=== PATIENT | male | born 2000 | race Caucasian/White ===

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

== ENCOUNTER 2023-01-13 11:33 | Inpatient (IN) ==
--- NOTE | 2023-01-13 12:03 | XRay Report ---
XR chest 1V portable HISTORY: 22 years-old Male Chest pain, nonspecific COMPARISON: 03/27/2015 TECHNIQUE: AP view of the chest FINDINGS: Cardiomediastinal and hilar silhouettes are within normal limits. No pneumothorax, pleural effusion o r airspace consolidation. The bones appear grossly intact. Mild nonspecific mid to lower lung interst itial coarsening. IMPRESSION: 1. No airspace consolidation typical for pneumonia. 2. Equivocal interstitial coarsening of the mid to lower lung zones which may be secondary to techniq ue versus a subtle pneumonitis. ACT 112: Negative or not required by law. The above report was generated using voice recognition software. It may contain grammatical, syntax o r spelling errors. Electronically signed by: Simeon Nj M.D. 01/13/2023 12:02 PM
[2023-01-13] MEDS: SODIUM CHLORIDE 0.9% 1,000 ML IV SCH ×2 (12:21→13:41)
[2023-01-13 12:37] LABS: Basophils # (auto) 0.05 K/uL (0.00-0.20); Basophils % (auto) 0.3 %; Eosinophils # (auto) 0.08 K/uL (0.00-0.50); Eosinophils % (auto) 0.5 %; Hematocrit (blood only) 42.3 % (42.0-52.0); Hemoglobin 15.1 g/dl (14.0-18.0); Immature Granulocytes # (auto) 0.09 K/uL (0.01-0.20); Immature Granulocytes % (auto) 0.6 %; Lymphocytes # (auto) 1.42 K/uL (1.20-3.40); Lymphocytes % (auto) 9.6 %; Mean Corpuscular Hemoglobin 29.7 pg (25.0-34.0); Mean Corpuscular Hgb Conc 35.7 g/dL (32.0-36.0); Mean Corpuscular Volume 83.1 fL (80.0-100.0); Mean Platelet Volume 9.4 fL (9.4-12.4); Monocytes # (auto) 1.11 K/uL (0.11-0.59); Monocytes % (auto) 7.5 %; Neutrophils % (auto) 81.5 %; Platelet Count 365 K/uL (130-400); RDW Coefficient of Variation 11.7 % (11.5-14.5); RDW Standard Deviation 35.7 fL (36.4-46.3); Red Blood Count 5.09 M/uL (4.70-6.10); White Blood Count 14.75 K/ul (4.8-10.8)
[2023-01-13] MEDS ORDERED: ACETAMINOPHEN 1,000 MG/100 ML VIAL IV STA (12:44)
[2023-01-13] MEDS ORDERED: ALBUT/IPRATROP 3MG/0.5MG NEB 3 ML VIAL NEB ONE (12:44)
[2023-01-13] MEDS ORDERED: KETOROLAC TROMETHAMINE 15 MG/ML VIAL IV STA (12:44)
[2023-01-13] MEDS ORDERED: guaiFENesin 600 MG TABCR PO STA (12:44)
[2023-01-13] MEDS ORDERED: SODIUM CHLORIDE 0.65% NA SOLN 45 ML (OCEAN) ONE (12:44)
[2023-01-13] MEDS ORDERED: methylPREDNISolone 125 MG/2 ML VIAL IV STA (12:44)
[2023-01-13 12:48] LABS: INR 1.1 (0.9-1.1); Partial Thromboplastin Ratio 1.2; Partial Thromboplastin Time 33.2 Seconds (21.0-31.0); Prothrombin Time 12.4 Seconds (9.0-12.0)
[2023-01-13] MEDS ORDERED: FAMOTIDINE 20MG IV PUSH 20 MG/5 ML SYR IV STA (12:48)
[2023-01-13] MEDS ORDERED: ONDANSETRON INJ 2 MG/ML 2 ML VIAL IV STA (12:48)
[2023-01-13 13:01] LABS: Albumin Globulin Ratio 1.2 (0.9-2); Albumin Level 4.3 gm/dl (3.4-5.0); BUN Creatinine Ratio 10.8 (10-20); Bilirubin,Total 0.8 mg/dl (0.2-1.0); Calcium 9.6 mg/dl (8.6-10.3); Creatinine Clr Calc Pharmacy 126.7 ml/min; Est GFR (African American) 120.4 ml/min; Est GFR (Non-African American) 103.8 ml/min; Globulin 3.7 gm/dl (2.5-4.0); Phosphorus 3.6 mg/dl (2.5-4.9); Potassium 3.7 mmol/L (3.5-5.1)
[2023-01-13 13:04] LABS: Troponin I High Sensitivity 3.3 pg/ml (0-20)
[2023-01-13] MEDS ORDERED: OPTIRAY 320 500ml IV ONE (13:17)
[2023-01-13 13:48] LABS: Adenovirus PCR Not Detected (NotDetected); Bordetella parapertussis PCR Not Detected (NotDetected); Bordetella pertussis PCR Not Detected (NotDetected); Chlamydia pneumoniae PCR Not Detected (NotDetected); Coronavirus 229E PCR Not Detected (NotDetected); Coronavirus CoV-2 (COVID19)PCR Not Detected (NotDetected); Coronavirus HKU1 PCR Not Detected (NotDetected); Coronavirus NL63 PCR Not Detected (NotDetected); Coronavirus OC43PCR Not Detected (NotDetected); Human Metapneumovirus PCR Not Detected (NotDetected); Influenza A PCR Not Detected (NotDetected); Influenza B PCR Not Detected (NotDetected); Parainfluenza Virus 1 PCR Not Detected (NotDetected); Parainfluenza Virus 2 PCR Not Detected (NotDetected); Parainfluenza Virus 3 PCR Not Detected (NotDetected); Parainfluenza Virus 4 PCR Not Detected (NotDetected); Respiratory Syncytial VirusPCR Not Detected (NotDetected); Rhinovirus/Enterovirus PCR Not Detected (NotDetected)
[2023-01-13 13:51] LABS: Mycoplasma pneumoniae PCR DETECTED (NotDetected)
--- NOTE | 2023-01-13 14:01 | CT Scan Report ---
CT angio chest PE protocol CLINICAL HISTORY: tachycardia, hypoxia, sepsis, r/o PE TECHNIQUE: Multidetector row helical CT of the chest was performed with angiographic protocol. Emerson l and sagittal reformations were obtained. Coronal and sagittal MIPS were obtained from the axial nicky a set and were submitted for review. Automated dose lowering techniques and/or adjustment according to patient size were utilized for this exam. CT DOSE: 2520.28 mGy.cm Comparison: None available at the time of this dictation. FINDINGS: Lungs and pleura: There is prominent nodularity in the bilateral lower lungs. Heart and pericardium: Heart size is normal. No pericardial effusion. Vessels: No evidence of pulmonary embolism. Mediastinum and castillo: Subcentimeter lymph nodes are seen. Chest wall and lower neck: Subcentimeter axillary lymph nodes noted. Abdomen: For findings below the diaphragm, please refer to CT of the abdomen dated the same. Bones: Unremarkable. IMPRESSION: No pulmonary embolus. Bilateral lower lung nodularity likely represents infectious/inflammatory proce ss. ACT 112: Negative or not required by law. Electronically signed by: Glynn Hamm M.D. 01/13/2023 1:59 PM
[2023-01-13] MEDS ORDERED: AZITHROMYCIN 500 MG in DEXTROSE 5% 250 ML IV STA (14:09)
[2023-01-13] MEDS ORDERED: AMPICILLIN/SULBACTAM SOD 3,000 MG in SODIUM CHLOR 0.9% MINI-B 100 ML IV STA (14:09)
--- NOTE | 2023-01-13 14:11 | Emergency Department Note ---
Impression & Plan Sepsis, Bronchopneumonia due to Mycoplasma pneumoniae, Hypoxia, Bilateral otitis media ED Provider Note NAME: LYN BROWN AGE: 22 SEX: M ARRIVES VIA: Walk-In INFORMANT: Patient ED PROVIDER(S): Galdino Mclean MD CHIEF COMPLAINT: Hypoxia, fever, congestion, referred. PLAN: Disposition: Admit MEDICAL DECISION MAKING: The patient is a pleasant 22-year-old gentleman with a past medical history of Crohn's disease who presents to the emergency department via walk-in accompanied by his mother for evaluation of cough, congestion and fevers and shortness of breath we are seen by his outpatient PCP today and referred to the emergency department due to hypoxia with O2 saturation in the upper 80s on room air. The patient reports he does not take any medications for his Crohn's and this has been controlled. He denies any known sick contacts. The patient's mother reports that he did get significantly worse from last night into this morning after he had recurrent vomiting episodes last night. Patient did have a fever last night that was fluctuating. He denies chest pain but does feel short of breath. He denies any diarrhea or urinary symptoms. Denies smoking or vaping. Denies etoh use. On my evaluation the patient is ill-appearing but no acute distress, afebrile but heart rate in the 120s with O2 saturation 89% on room air and vital signs otherwise stable. He appears clinically dry. TMs with injection bilaterally. He has wheezes and rhonchi of bilateral mid to lower lung bailey. Abdomen is nontender. EKG without overt acute ischemia. Chest x-ray is suspicious for pneumonia with interstitial coarsening/opacities of bilateral lower lung bailey per my personal preliminary review/interpretation. WBC 14.7 with neutrophil predominance though no left shift. H/H and platelets within normal limits. Chemistry without metabolic acidosis. Lactic acid 0.9, within normal limits. LFTs unremarkable. High-sensitivity troponin 3.3 within normal limits. Procalcitonin is technically normal although borderline at 0.45. Respiratory BioFire was performed and was positive for mycoplasma pneumonia. Group A strep was negative. Patient was treated with 3 L of IV fluid hydration >30cc/kg given his presentation with SIRS. Antibiotic treatment initiated with IV azithromycin given positive mycoplasma PCR in addition to IV Unasyn for possible superimposed component of aspiration pneumonia. Additionally given Solu-Medrol and hour-long DuoNeb for component of bronchospasm on exam. Upon evaluation the patient did report some improvement but still appeared unwell and does agree with plan for admission for further management. Triage Nursing notes reviewed and agree them. Prior/external medical records reviewed including primary care doctor's visit today documenting bilateral otitis media and hypoxia on room air. Vital Signs: reviewed Differential diagnosis: Viral syndrome, otitis, pharyngitis, pneumonia, influenza, meningitis, urinary tract infection, sepsis, bacteremia, as well as other pathologies. ER treatment provided: See below. Diagnostics interpreted by me: ECG: Sinus tachycardia, 112 bpm, no ectopy, no overt ST elevation or depression, QTc 436, QRS 88 Cardiac Monitoring: An order for continuous cardiac monitoring was placed and demonstrated inus tachycardia, 112 bpm, no ectopy. Laboratory studies: See below Imaging studies: See below Consultation(s): Case was discussed with Jose Lopez, [facility] [place] and Dr. Boles, [facility] hospitalist who will evaluate the patient for admission. HPI: The patient is a pleasant 22-year-old gentleman with a past medical history of Crohn's disease who presents to the emergency department via walk-in accompanied by his mother for evaluation of cough, congestion and fevers and shortness of breath we are seen by his outpatient PCP today and referred to the emergency department due to hypoxia with O2 saturation in the upper 80s on room air. The patient reports he does not take any medications for his Crohn's and this has been controlled. He denies any known sick contacts. The patient's mother reports that he did get significantly worse from last night into this morning after he had recurrent vomiting episodes last night. Patient did have a fever last night that was fluctuating. He denies chest pain but does feel short of breath. He denies any diarrhea or urinary symptoms. Denies smoking or vaping. Denies etoh use. ROS: See above HPI for pertinent positives & negatives. A total of 10 systems reviewed and were otherwise negative. VITALS:See Below PHYSICAL EXAMINATION: GENERAL: Awake, alert, ill-appearing, in no distress HENT: Normocephalic, atraumatic. TMs with injection bilaterally. No mastoid ttp. Boggy nasal turbinates. No maxillary or frontal sinus tenderness. Oropharynx with dry mucous membranes and otherwise unremarkable. EYES: Normal conjunctiva. Sclera non-icteric. EOMI. No nystamgus. PEARRL. NECK: Supple. No nuchal rigidity. FROM. No JVD. RESPIRATORY: Wheezes and rhonchi bilateral mid to lower lung bailey. CARDIAC: Tachycardic rate, normal rhythm. Extremities warm and well perfused. Pulses equal. ABDOMEN: Soft, non-distended. No tenderness to palpation. No rebound or guarding. No masses. RECTAL: Deferred. MUSCULOSKELETAL: Chest examination reveals no tenderness. The back is symmetrical on inspection without obvious abnormality. There is no CVA tenderness to palpation. No joint edema. LOWER EXTREMITIES: Calves are equal size bilaterally and non-tender. No edema. No discoloration. NEURO: Normal sensorium. No sensory or motor deficits noted. SKIN: No rash or jaundice noted. ED COURSE: Critical Care: I have personally spent greater than 32 minutes of critical care time in the direct management of this patient. This includes bedside care, interpretation of diagnostic studies, and testing, discussion with consultants, patient, and family members, and other required patient management activities. This 32 minutes is in excess of all separately billable procedures. Galdino Mclean MD Past Med/Surg History Medical History Crohn's disease Male circumcision Surgical History H/O esophagogastroduodenoscopy H/O colonoscopy Family History Grandfather Myocardial infarction Denies family history of Ovarian cancer Prostate cancer Diabetes Breast cancer Colorectal cancer Hypertension Social History Smoking Status: Never smoker Second Hand Exposure: No; Do You Dip or Chew Tobacco: No; Hx Alcohol Use: Yes Alcohol Intake Frequency: Monthly or Less Hx Substance Use: No marital status: Single Current Living Situation: Family Current Living Situation Comment: lives with mother and sister current occupational status: employed Feels Safe at Home: Yes caffeine: Yes (tea-seltzer) Dental Care, Regularly: Yes Physical Activity Frequency: Does not Exercise Seatbelt Use: always Sunscreen Use: No Allergies Allergies Allergy/AdvReac Type Severity Reaction Status Date / Time Sulfa (Sulfonamide Allergy Unknown . Verified 01/13/23 14:55 Antibiotics) gluten AdvReac Severe Crohn's Unverified 01/13/23 21:27 disease Sugars, Metabolically Active AdvReac "PROCESSED Verified 01/13/23 21:27 SUGARS" Chrohn's Home Meds Previous Rx's Medication Instructions Recorded amoxicillin 875 mg-potassium 1 tab PO BID #20 tabs 01/13/23 clavulanate 125 mg tablet prednisone 50 mg tablet 50 mg PO DAILY #5 tabs 01/13/23 Results & Data (ED) Vital Signs Vital Signs - 24 hr 01/13/23 11:41 01/13/23 11:46 01/13/23 11:46 Temperature 36.5 C Temperature Source Temporal Artery Scan Pulse Rate 119 H Pulse Rate [Apical] Respiratory Rate 20 Respiratory Effort / Characteristics Respiratory Depth Respiratory Pattern Blood Pressure 133/76 Blood Pressure [Left Arm] Blood Pressure Mean 95 Blood Pressure Mean [Left Arm] Blood Pressure Position [Left Arm] Pulse Oximetry 89 L 90 90 Oxygen Delivery Method Room Air Nasal Cannula Nasal Cannula Oxygen Flow Rate 2 2 Sepsis Recent Fever Within 48 Hours Yes Sepsis New/Unexplained Change in Mental Status No Sepsis Action Taken by Nursing No Action Required 01/13/23 12:29 01/13/23 13:28 01/13/23 14:43 Temperature Temperature Source Pulse Rate 110 H Pulse Rate [Apical] 109 H 100 H Respiratory Rate 20 22 Respiratory Effort / Characteristics Spontaneous SOB on Exertion Respiratory Depth Respiratory Pattern Blood Pressure Blood Pressure [Left Arm] 120/77 Blood Pressure Mean Blood Pressure Mean [Left Arm] 91 Blood Pressure Position [Left Arm] Pulse Oximetry 93 92 Oxygen Delivery Method Nasal Cannula Nasal Cannula Oxygen Flow Rate 2 2 Sepsis Recent Fever Within 48 Hours Sepsis New/Unexplained Change in Mental Status Sepsis Action Taken by Nursing 01/13/23 15:30 01/13/23 16:26 Temperature Temperature Source Pulse Rate 123 H Pulse Rate [Apical] 116 H Respiratory Rate 20 Respiratory Effort / Characteristics Non-Labored Spontaneous Respiratory Depth Normal Respiratory Pattern Regular Blood Pressure Blood Pressure [Left Arm] 124/64 Blood Pressure Mean Blood Pressure Mean [Left Arm] 84 Blood Pressure Position [Left Arm] Semi-fowlers Pulse Oximetry 97 Oxygen Delivery Method Nasal Cannula Oxygen Flow Rate 2 Sepsis Recent Fever Within 48 Hours Sepsis New/Unexplained Change in Mental Status Sepsis Action Taken by Nursing Laboratory Data Attestation: I reviewed the patient's lab results. 01/13/23 12:15 01/13/23 12:15 Lab Results 01/13/23 01/13/23 01/13/23 Range/Units 12:15 13:27 14:12 WBC 14.75 H (4.8-10.8) K/ul RBC 5.09 (4.70-6.10) M/uL Hgb 15.1 (14.0-18.0) g/dl Hct 42.3 (42.0-52.0) % MCV 83.1 (80.0-100.0) fL MCH 29.7 (25.0-34.0) pg MCHC 35.7 (32.0-36.0) g/dL RDW Std Deviation 35.7 L (36.4-46.3) fL RDW Coeff of Chris 11.7 (11.5-14.5) % Plt Count 365 (130-400) K/uL MPV 9.4 (9.4-12.4) fL Immature Gran % (Auto) 0.6 % Neut % (Auto) 81.5 % Lymph % (Auto) 9.6 % [place] % (Auto) 7.5 % Eos % (Auto) 0.5 % Baso % (Auto) 0.3 % Neut # (Auto) 12.00 H (1.40-6.50) K/uL Lymph # (Auto) 1.42 (1.20-3.40) K/uL [place] # (Auto) 1.11 H (0.11-0.59) K/uL Eos # (Auto) 0.08 (0.00-0.50) K/uL Baso # (Auto) 0.05 (0.00-0.20) K/uL Immature Gran # (Auto) 0.09 (0.01-0.20) K/uL PT 12.4 H (9.0-12.0) Seconds INR 1.1 (0.9-1.1) APTT 33.2 H (21.0-31.0) Seconds PTT Ratio 1.2 Sodium 136 (136-145) mmol/L Potassium 3.7 (3.5-5.1) mmol/L Chloride 99 (98-107) mmol/L Carbon Dioxide 25 (21-32) mmol/L Anion Gap 12 H (3-11) BUN 11 (6-23) mg/dl Creatinine 1.02 (0.6-1.4) mg/dl Est Cr Clr Drug Dosing 126.7 ml/min Est GFR ( Amer) 120.4 ml/min Est GFR (Non-Af Amer) 103.8 ml/min BUN/Creatinine Ratio 10.8 (10-20) Glucose 93 (70-99(Fasting)) mg/dl Lactate 0.9 (0.4-2.0) mmol/L Calcium 9.6 (8.6-10.3) mg/dl Phosphorus 3.6 (2.5-4.9) mg/dl Magnesium 2.0 (1.7-2.4) mg/dl Total Bilirubin 0.8 (0.2-1.0) mg/dl AST 12 L (13-39) U/L ALT 6 L (7-52) U/L Alkaline Phosphatase 88 (34-104) U/L Troponin I High Sens 3.3 (0-20) pg/ml Total Protein 8.0 (6.0-8.3) gm/dl Albumin 4.3 (3.4-5.0) gm/dl Globulin 3.7 (2.5-4.0) gm/dl Albumin/Globulin Ratio 1.2 (0.9-2) Procalcitonin 0.45 (0-0.5) ng/ml Adenovirus (PCR) Not Detected (NotDetected) B. pertussis DNA (PCR) Not Detected (NotDetected) B.parapertussis DNA PCR Not Detected (NotDetected) C. pneumoniae DNA (PCR) Not Detected (NotDetected) Coronavirus OC43 (PCR) Not Detected (NotDetected) Coronavirus HKU1 (PCR) Not Detected (NotDetected) Coronavirus 229E (PCR) Not Detected (NotDetected) SARS-CoV-2 (PCR) Not Detected (NotDetected) Coronavirus NL63 (PCR) Not Detected (NotDetected) Human Metapneumovir PCR Not Detected (NotDetected) Influenza Type A (PCR) Not Detected (NotDetected) Influenza Type B (PCR) Not Detected (NotDetected) M. pneumoniae (PCR) DETECTED A* (NotDetected) Parainfluenza 1 (PCR) Not Detected (NotDetected) Parainfluenza 2 (PCR) Not Detected (NotDetected) Parainfluenza 3 (PCR) Not Detected (NotDetected) Parainfluenza 4 (PCR) Not Detected (NotDetected) RSV (PCR) Not Detected (NotDetected) Entero/Rhino (PCR) Not Detected (NotDetected) Group A Strep (PCR) NOT DETECTED (NotDetected) Administered Medications Ampicillin Sodium/Sulbactam Sodium 3,000 mg/ Sodium Chloride 100 mls @ 100 mls/hr IV Q6H WU Stop: 01/20/23 21:59 Last Admin: 01/13/23 21:49 Dose: 100 mls/hr Documented By: AB Discontinued Medications Albuterol (Albut/Ipratrop 3mg/0.5mg Neb 3 Ml Vial) 12 ml NEB ONE ONE; Protocol Stop: 01/13/23 12:45 Last Admin: 01/13/23 14:43 Dose: 12 ml Documented By: LENNIE Guaifenesin (Guaifenesin 600 Mg Tabcr) 1,200 mg PO NOW STA Stop: 01/13/23 12:45 Last Admin: 01/13/23 13:00 Dose: 1,200 mg Documented By: ABDULLAHI Sodium Chloride (Nss) 1,000 mls @ 999 mls/hr IV .Q1H1M WU Stop: 01/13/23 14:00 Last Infusion: 01/13/23 14:23 Dose: Infused Documented By: Admin: 01/13/23 13:41 Dose: 999 mls/hr Documented By: Infusion: 01/13/23 13:41 Dose: Infused Documented By: Admin: 01/13/23 12:21 Dose: 999 mls/hr Documented By: MALI Acetaminophen (Ofirmev) 1,000 mg in 100 mls @ 400 mls/hr IV NOW STA Stop: 01/13/23 12:58 Last Infusion: 01/13/23 13:42 Dose: Infused Documented By: Admin: 01/13/23 13:01 Dose: 400 mls/hr Documented By: ABDULLAHI Famotidine (Pepcid 20mg Iv Push) 20 mg in 5 mls @ 2.5 mls/min IV NOW STA Stop: 01/13/23 12:49 Last Admin: 01/13/23 13:00 Dose: 2.5 mls/min Documented By: ABDULLAHI Ampicillin Sodium/Sulbactam Sodium 3,000 mg/ Sodium Chloride 100 mls @ 200 mls/hr IV NOW STA Stop: 01/13/23 14:38 Last Infusion: 01/13/23 15:31 Dose: Infused Documented By: Admin: 01/13/23 14:59 Dose: 200 mls/hr Documented By: MALI Azithromycin 500 mg/ Dextrose 255 mls @ 127.5 mls/hr IV NOW STA Stop: 01/13/23 16:08 Last Infusion: 01/13/23 17:31 Dose: Infused Documented By: Admin: 01/13/23 15:23 Dose: 127.5 mls/hr Documented By: Sodium Chloride (Nss) 1,000 mls @ 999 mls/hr IV .Q1H1M ONE Stop: 01/13/23 15:35 Last Infusion: 01/13/23 17:32 Dose: Infused Documented By: Admin: 01/13/23 15:24 Dose: 999 mls/hr Documented By: Doxycycline Hyclate 100 mg/ (Dextrose) 100 mls @ 50 mls/hr IV NOW STA Stop: 01/13/23 18:53 Last Infusion: 01/13/23 19:41 Dose: Infused Documented By: Admin: 01/13/23 17:37 Dose: 50 mls/hr Documented By: Ioversol (Optiray 320 500ml) 117 ml IV ONCE ONE Stop: 01/13/23 13:18 Last Admin: 01/13/23 13:18 Dose: 117 ml Documented By: KEN Ketorolac Tromethamine (Ketorolac Tromethamine 15 Mg/Ml Vial) 15 mg IV NOW STA Stop: 01/13/23 12:45 Last Admin: 01/13/23 13:00 Dose: 15 mg Documented By: ABDULLAHI Methylprednisolone (Methylprednisolone 125 Mg/2 Ml Vial) 125 mg IV NOW STA Stop: 01/13/23 12:45 Last Admin: 01/13/23 13:00 Dose: 125 mg Documented By: ABDULLAHI Ondansetron HCl (Ondansetron Inj 2 Mg/Ml 2 Ml Vial) 4 mg IV NOW STA Stop: 01/13/23 12:49 Last Admin: 01/13/23 13:00 Dose: 4 mg Documented By: ABDULLAHI Sodium Chloride (Sodium Chloride 0.65% Na Soln 45 Ml (Wells)) 2 sprays NA NOW ONE Stop: 01/13/23 12:45 Last Admin: 01/13/23 14:00 Dose: 2 sprays Documented By: MALI Imaging Data Radiologist's Impression: Chest X-Ray 01/13/23 11:46 XR chest 1V portable HISTORY: 22 years-old Male Chest pain, nonspecific COMPARISON: 03/27/2015 TECHNIQUE: AP view of the chest FINDINGS: Cardiomediastinal and hilar silhouettes are within normal limits. No pneumothorax, pleural effusion or airspace consolidation. The bones appear grossly intact. Mild nonspecific mid to lower lung interstitial coarsening. IMPRESSION: 1. No airspace consolidation typical for pneumonia. 2. Equivocal interstitial coarsening of the mid to lower lung zones which may be secondary to technique versus a subtle pneumonitis. ACT 112: Negative or not required by law. The above report was generated using voice recognition software. It may contain grammatical, syntax or spelling errors. Electronically signed by: Simeon Nj M.D. 01/13/2023 12:02 PM Chest CTA 01/13/23 12:46 CT angio chest PE protocol CLINICAL HISTORY: tachycardia, hypoxia, sepsis, r/o PE TECHNIQUE: Multidetector row helical CT of the chest was performed with angiographic protocol. Coronal and sagittal reformations were obtained. Coronal and sagittal MIPS were obtained from the axial data set and were submitted for review. Automated dose lowering techniques and/or adjustment according to patient size were utilized for this exam. CT DOSE: 2520.28 mGy.cm Comparison: None available at the time of this dictation. FINDINGS: Lungs and pleura: There is prominent nodularity in the bilateral lower lungs. Heart and pericardium: Heart size is normal. No pericardial effusion. Vessels: No evidence of pulmonary embolism. Mediastinum and castillo: Subcentimeter lymph nodes are seen. Chest wall and lower neck: Subcentimeter axillary lymph nodes noted. Abdomen: For findings below the diaphragm, please refer to CT of the abdomen dated the same. Bones: Unremarkable. IMPRESSION: No pulmonary embolus. Bilateral lower lung nodularity likely represents infectious/inflammatory process. ACT 112: Negative or not required by law. Electronically signed by: Glynn Hamm M.D. 01/13/2023 1:59 PM Abdomen/Pelvis CT 01/13/23 12:[address] WITH IV CONTRAST HISTORY: Acute tachycardia with sepsis, nausea and vomiting sepsis, n/v TECHNIQUE: Multiaxial CT images of the abdomen and pelvis were performed following the IV administration of 117 cc of Optiray, A dose lowering technique was utilized adhering to the principles of ALARA. COMPARISON STUDY: CTA chest of same day FINDINGS: Bronchial wall thickening with diffuse bronchoalveolar groundglass and consolidative opacities, most pronounced in the basal lower lobes. No free air. The spleen is enlarged measuring 15.2 cm. Unremarkable spleen, pancreas and mildly distended gallbladder. The liver is within normal limits. Patency of the hepatic and portal veins. Unremarkable kidneys. No hydronephrosis. Urinary bladder wall thickening with partial distention. Unremarkable prostate. Aorta and IVC are unremarkable. There is no lymphadenopathy. No bowel obstruction or bowel wall thickening. No ascites or mesenteric inflammation. Mural for fatty changes of the colon. Normal appendix. No acute fracture. IMPRESSION: 1. Multifocal bronchopneumonia, most pronounced within the lower lobes. 2. No acute intra-abdominal or intrapelvic abnormality 3. Normal appendix. ACT 112: Negative or not required by law. The above report was generated using voice recognition software. It may contain grammatical, syntax or spelling errors. Electronically signed by: Simeon Nj M.D. 01/13/2023 2:17 PM Discharge Plan Visit Data Chief Complaint: Flu Like Symptoms Stated Complaint: DOC REF,HTN,LOW 02,COUGH, ED Provider: Galdino Mclean Discharge Problem: Sepsis, Bronchopneumonia due to Mycoplasma pneumoniae, Hypoxia, Bilateral otitis media Patient Disposition: Admitted As Inpatient Discharge Instructions Interventions: ED Discharge Assessment Last Done: 01/13/23 21:21 Discharge Problem: Sepsis Qualifiers: Sepsis type: sepsis due to unspecified organism Sepsis acute organ dysfunction status: unspecified Qualified Code(s): A41.9 - Sepsis, unspecified organism Bilateral otitis media Qualifiers: Otitis media type: unspecified Qualified Code(s): H66.93 - Otitis media, unspecified, bilateral
--- NOTE | 2023-01-13 14:18 | CT Scan Report ---
ABDOMEN AND PELVIS CT WITH IV CONTRAST HISTORY: Acute tachycardia with sepsis, nausea and vomiting sepsis, n/v TECHNIQUE: Multiaxial CT images of the abdomen and pelvis were performed following the IV administrat ion of 117 cc of Optiray, A dose lowering technique was utilized adhering to the principles of ALARA . COMPARISON STUDY: CTA chest of same day FINDINGS: Bronchial wall thickening with diffuse bronchoalveolar groundglass and consolidative opacit ies, most pronounced in the basal lower lobes. No free air. The spleen is enlarged measuring 15.2 cm. Unremarkable spleen, pancreas and mildly distended gallbladder. The liver is within normal limits. P atency of the hepatic and portal veins. Unremarkable kidneys. No hydronephrosis. Urinary bladder wall thickening with partial distention. Unr emarkable prostate. Aorta and IVC are unremarkable. There is no lymphadenopathy. No bowel obstruction or bowel wall thickening. No ascites or mesenteric inflammation. Mural for fatty changes of the colo n. Normal appendix. No acute fracture. IMPRESSION: 1. Multifocal bronchopneumonia, most pronounced within the lower lobes. 2. No acute intra-abdominal or intrapelvic abnormality 3. Normal appendix. ACT 112: Negative or not required by law. The above report was generated using voice recognition software. It may contain grammatical, syntax o r spelling errors. Electronically signed by: Simeon Nj M.D. 01/13/2023 2:17 PM
[2023-01-13] MEDS ORDERED: SODIUM CHLORIDE 0.9% 1,000 ML IV ONE (14:35)
--- NOTE | 2023-01-13 15:33 | Electrocardiogram Report ---
Test Reason : Blood Pressure : / mmHG Vent. Rate : 112 BPM Atrial Rate : 112 BPM P-R Int : 124 ms QRS Dur : 088 ms QT Int : 320 ms P-R-T Axes : 057 073 020 degrees QTc Int : 436 ms Sinus tachycardia Otherwise normal ECG When compared with ECG of 14-JAN-2017 13:11, No significant change was found Confirmed by Preston Velasquez ([id number]) on 01/13/2023 3:32:51 PM Referred By: Confirmed By:Preston Velasquez
--- NOTE | 2023-01-13 16:06 | History & Physical Report ---
Date of Service January 13, 2023 Assessment & Plan (1) Mycoplasma pneumonia: Plan: Productive cough x10 days Acute worsening of SOB, low-grade fever, and vomiting x2 the morning of 01/13 Hypoxia in his PCP's office at 89-90% SPO2 with tachycardia ~115bpm + Mycoplasma pneumonia on arrival CXR suggested subtle, lower lung pneumonitis Chest CTA without pulmonary emboli; B/L lower lung nodularity inventory representative of infectious/inflammatory process CT abdomen/pelvis revealed multifocal bronchopneumonia in the lower lobes Patient received azithromycin and Unasyn in the ED Continue Unasyn 3g IV q6h Switched to Doxycycline 100 mg IV q12h d/t increased resistance to azithromycin with M. Pneumonia Guaifenesin 1200 mg p.o. q12h for cough Zofran 4 mg IV q6h as needed for nausea; QTc 436 Acetaminophen 650 mg p.o. q4h as needed for fever Continuous oxygen supplementation with target SPO2 >94% Encourage incentive spirometry, OOB and ambulation within room Droplet precautions A.m. CBC, BMP (2) Sepsis: Plan: Based on tachycardia 116bpm, leukocytosis of 14.75, and pulmonary source Lactate WNL at 0.9; no fluid bolus Patient received 2L NSS in the ED (3) Sinus tachycardia: Plan: EKG sinus tachycardia at 112 bpm Troponin WNL Patient denies CP, pleuritic CP, hemoptysis 123 bpm at time of admission Continuous telemetry monitoring (4) Crohn's disease: Plan: Managed with diet, without daily medications Patient reports gluten-free, low sugar diet (5) Acute respiratory failure with hypoxia: Plan Disposition: Admit to [facility] telemetry Full code Gluten-free diet (patient with Crohn's disease) No VTE PPx; encourage OOB and in-room ambulation History of Present Illness Chief Complaint: Flulike symptoms Primary Care Provider: DO Ivy Buckley is a 22-year-old male with PMH of Crohn's disease. He presented for productive cough x10 days, as well as an acute exacerbation of hypoxia at 89% and tachycardia at 115bpm in his PCP appointment this morning on 01/13. Patient reports intermittent fevers up to 99.8 F over the past week. He endorses SOB with light exertion; not currently at rest. The SOB is improved by leaning forward. He denies pleuritic CP, but coughs when he takes deep breaths. 2 episodes of vomiting, last night on 01/12 and again this morning on 01/13. No hematemesis. No hemoptysis. Patient took 2 Tylenol tabs 500 mg, Mucinex, cough syrup with codeine, and DayQuil yesterday, which helped. He denies tobacco use, smoking, vaping, and recreational drug use. Occasional alcohol use, but none within the last week. He lives with his mom and sister. No one else in the house is sick. The patient cannot identify any sick contacts within the past 2- week. No environmental exposures. No recent travel outside [place]. No recent bus rides or airplane travel. He has not noticed any ticks on his body. Patient is currently unemployed. He tested positive for mycoplasma pneumonia on arrival. Patient is mildly tachycardic at 116 bpm on arrival; vitals otherwise hemodynamically stable. ED course: Azithromycin 500 mg Unasyn 3000 mg IV NSS 2000 mL Solu-Medrol 125 mg IV DuoNeb 12 mL Toradol 50 mg IV Acetaminophen 1000 mg IV Pepcid 20 mg IV Mucinex 1200 mg p.o. Zofran 4 mg IV ROS: Patient endorses fever, chills, nightsweats, SOB, productive cough (yellow sputum), N/V. Patient denies hemoptsis, CP, pleuritic CP, hematemesis, burning with urination, diarrhea, numbness/tingling/pain/swelling in legs. No PMHx of asthma, MA, DVT/PE, blood clots, or bleeding disorders Allergies Allergy/AdvReac Type Severity Reaction Status Date / Time Sulfa (Sulfonamide Allergy Unknown . Verified 01/13/23 14:55 Antibiotics) gluten AdvReac Severe Crohn's Unverified 01/13/23 21:27 disease Sugars, Metabolically Active AdvReac "PROCESSED Verified 01/13/23 21:27 SUGARS" [facility] Home Medications Medication Instructions Recorded Confirmed Type amoxicillin 875 mg-potassium 1 tab PO BID #20 tabs 01/13/23 01/13/23 Rx clavulanate 125 mg tablet prednisone 50 mg tablet 50 mg PO DAILY #5 tabs 01/13/23 01/13/23 Rx Past Med/Surg History Medical History Crohn's disease Male circumcision Surgical History H/O esophagogastroduodenoscopy H/O colonoscopy Family History Grandfather Myocardial infarction Denies family history of Ovarian cancer Prostate cancer Diabetes Breast cancer Colorectal cancer Hypertension Social History Smoking Status: Never smoker Second Hand Exposure: No; Do You Dip or Chew Tobacco: No; Hx Alcohol Use: Yes Alcohol type: beer Alcohol Intake Frequency: Monthly or Less Hx Substance Use: No Preferred Language: Honduran Trestle Builder Required: No Beliefs That Will Affect Care: None marital status: Single Current Living Situation: Family Current Living Situation Comment: Lives with mother current occupational status: employed Other Information That Helps Us Care for You: No Feels Safe at Home: Yes Safety Concerns: Feels Safe At This Time caffeine: Yes (tea-seltzer) Dental Care, Regularly: Yes Physical Activity Frequency: Does not Exercise Seatbelt Use: always Sunscreen Use: No Assistive Devices: Glasses Review of Systems Review of Systems: See HPI above Physical Exam Physical Exam: General: Mild respiratory distress; diaphoretic; non-toxic appearing; well- nourished; cooperative; 92% SPO2 on 3L NC HEENT: normocephalic, atraumatic; no scleral icterus; PERRLA w/ EOMs intact; moist mucus membrane; vision and hearing grossly intact Neck: supple; no JVD; no lymphadenopathy; trachea midline Skin: warm, dry without signs of tenting; no cyanosis; no rashes, bruising, lesions, or erythema noted CV: chest wall NTP; tachycardic at 120 bpm, regular rhythm; S1/S2 normal; no murmurs/rubs/gallops; pulses bounding, intact and symmetric at radial, DP, and PT Lungs: Mild respiratory distress; symmetrical chest wall expansion; clear breath sounds across all lung bailey w/o adventitious sounds; no wheezing ABD: Soft, NTP; BS present; no rebound/guarding; no ascites; no distention MSK: no tics or fasciculations; no edema noted in the LEs b/l, nonerythematous Neuro: A&Ox3; normal mood and affect; fluent speech; no focal deficits; sensation grossly intact in the LEs B/L Results & Data Results & Data Vital Signs (Past 12 Hours) Vital Signs Temp Pulse Pulse Resp BP BP Pulse Ox 01/13/23 15:30 116 H 20 124/64 97 01/13/23 14:43 100 H 22 92 01/13/23 13:28 109 H 20 120/77 93 01/13/23 12:29 110 H 01/13/23 11:46 90 01/13/23 11:46 90 01/13/23 11:41 36.5 C 119 H 20 133/76 89 L O2 Del Method O2 Flow Rate 01/13/23 15:30 Nasal Cannula 01/13/23 14:43 Nasal Cannula 2 01/13/23 13:28 Nasal Cannula 2 01/13/23 12:29 01/13/23 11:46 Nasal Cannula 2 01/13/23 11:46 Nasal Cannula 2 01/13/23 11:41 Room Air Laboratory Results Abnormal lab results 01/13/23 Range/Units 12:15 WBC 14.75 H (4.8-10.8) K/ul RDW Std Deviation 35.7 L (36.4-46.3) fL Neut # (Auto) 12.00 H (1.40-6.50) K/uL Shoshone # (Auto) 1.11 H (0.11-0.59) K/uL PT 12.4 H (9.0-12.0) Seconds APTT 33.2 H (21.0-31.0) Seconds Anion Gap 12 H (3-11) AST 12 L (13-39) U/L ALT 6 L (7-52) U/L M. pneumoniae (PCR) DETECTED A* (NotDetected) Diagnostic Findings Chest X-Ray 01/13/23 11:46 XR chest 1V portable HISTORY: 22 years-old Male Chest pain, nonspecific COMPARISON: 03/27/2015 TECHNIQUE: AP view of the chest FINDINGS: Cardiomediastinal and hilar silhouettes are within normal limits. No pneumothorax, pleural effusion or airspace consolidation. The bones appear grossly intact. Mild nonspecific mid to lower lung interstitial coarsening. IMPRESSION: 1. No airspace consolidation typical for pneumonia. 2. Equivocal interstitial coarsening of the mid to lower lung zones which may be secondary to technique versus a subtle pneumonitis. ACT 112: Negative or not required by law. The above report was generated using voice recognition software. It may contain grammatical, syntax or spelling errors. Electronically signed by: Simeon Nj M.D. 01/13/2023 12:02 PM Chest CTA 01/13/23 12:46 CT angio chest PE protocol CLINICAL HISTORY: tachycardia, hypoxia, sepsis, r/o PE TECHNIQUE: Multidetector row helical CT of the chest was performed with angiographic protocol. Coronal and sagittal reformations were obtained. Coronal and sagittal MIPS were obtained from the axial data set and were submitted for review. Automated dose lowering techniques and/or adjustment according to patient size were utilized for this exam. CT DOSE: 2520.28 mGy.cm Comparison: None available at the time of this dictation. FINDINGS: Lungs and pleura: There is prominent nodularity in the bilateral lower lungs. Heart and pericardium: Heart size is normal. No pericardial effusion. Vessels: No evidence of pulmonary embolism. Mediastinum and castillo: Subcentimeter lymph nodes are seen. Chest wall and lower neck: Subcentimeter axillary lymph nodes noted. Abdomen: For findings below the diaphragm, please refer to CT of the abdomen dated the same. Bones: Unremarkable. IMPRESSION: No pulmonary embolus. Bilateral lower lung nodularity likely represents infectious/inflammatory process. ACT 112: Negative or not required by law. Electronically signed by: Glynn Hamm M.D. 01/13/2023 1:59 PM Abdomen/Pelvis CT 01/13/23 12:[address] WITH IV CONTRAST HISTORY: Acute tachycardia with sepsis, nausea and vomiting sepsis, n/v TECHNIQUE: Multiaxial CT images of the abdomen and pelvis were performed following the IV administration of 117 cc of Optiray, A dose lowering technique was utilized adhering to the principles of ALARA. COMPARISON STUDY: CTA chest of same day FINDINGS: Bronchial wall thickening with diffuse bronchoalveolar groundglass and consolidative opacities, most pronounced in the basal lower lobes. No free air. The spleen is enlarged measuring 15.2 cm. Unremarkable spleen, pancreas and mildly distended gallbladder. The liver is within normal limits. Patency of the hepatic and portal veins. Unremarkable kidneys. No hydronephrosis. Urinary bladder wall thickening with partial distention. Unremarkable prostate. Aorta and IVC are unremarkable. There is no lymphadenopathy. No bowel obstruction or bowel wall thickening. No ascites or mesenteric inflammation. Mural for fatty changes of the colon. Normal appendix. No acute fracture. IMPRESSION: 1. Multifocal bronchopneumonia, most pronounced within the lower lobes. 2. No acute intra-abdominal or intrapelvic abnormality 3. Normal appendix. ACT 112: Negative or not required by law. The above report was generated using voice recognition software. It may contain grammatical, syntax or spelling errors. Electronically signed by: Simeon Nj M.D. 01/13/2023 2:17 PM Code Status & VTE Plan Code Status Full code VTE Prophylaxis Plan Reason for no VTE drug order: Treatment not indicated Supervising Physician Co-Signing Physician Notes I personally saw and examined the patient. I independently reviewed the labs, EKG, imaging, problem list, medication list, past medical history and family history. I verified all santamaria points and agree with Ruslan Mann PA-C with the following exceptions and/or additions: 22 year old male presents to the ER with shortness of breath and productive cough for the last week. Getting progressively worse. O/E HS increased rate, regular rhythm, no murmurs, bibasal crackles, using accessory muscles, no wheezing, no abdo pain A/P Mycoplasma pneumoniae - diagnosed with typical pattern on CXR/CT with biofire PCR positive. Switch to doxycycline given severe illness with increased resistance to macrolides. Unasyn to cover for typical PNA. Sepsis - Lactate 0.9 and not hypotensive therefore does not need to meet 30ml/kg dosing of IV fluid bolus Acute respiratory failure with hypoxia - accessory muscle use PG Care Time/CCT Total # of Minutes Spent Total Time Spent with Patient: Total time spent is greater than 50% in coordination of care (as documented) at patient's floor/unit and/or counseling patient: [place] [address] INT INP/OBS CARE 2/55MIN Patient Type New Medical Decision Making Moderate Complexity Diagnoses Mycoplasma pneumonia J15.7 Sepsis A41.9 Sinus tachycardia R00.0 Crohn's disease K50.90 Acute respiratory failure with hypoxia J96.01
[2023-01-13] MEDS ORDERED: DOXYCYCLINE HYCLATE 100 MG in DEXTROSE 5% MINI-B 100 ML IV STA (16:54)
[2023-01-13] MEDS ORDERED: ONDANSETRON INJ 2 MG/ML 2 ML VIAL IV PRN (21:21)
[2023-01-13] MEDS ORDERED: ACETAMINOPHEN 325 MG TAB PO PRN (21:21)
[2023-01-13] MEDS: AMPICILLIN/SULBACTAM SOD 3,000 MG in SODIUM CHLOR 0.9% MINI-B 100 ML IV SCH (21:49)
[2023-01-14] MEDS: AMPICILLIN/SULBACTAM SOD 3,000 MG in SODIUM CHLOR 0.9% MINI-B 100 ML IV SCH ×4 (04:44→21:10)
[2023-01-14 05:26] LABS: Basophils # (auto) 0.03 K/uL (0.00-0.20); Basophils % (auto) 0.2 %; Hematocrit (blood only) 36.5 % (42.0-52.0); Hemoglobin 12.8 g/dl (14.0-18.0); Immature Granulocytes # (auto) 0.14 K/uL (0.01-0.20); Lymphocytes % (auto) 8.9 %; Mean Corpuscular Hemoglobin 29.2 pg (25.0-34.0); Mean Corpuscular Hgb Conc 35.1 g/dL (32.0-36.0); Mean Corpuscular Volume 83.3 fL (80.0-100.0); Mean Platelet Volume 9.4 fL (9.4-12.4); Monocytes # (auto) 0.62 K/uL (0.11-0.59); Monocytes % (auto) 4.6 %; Neutrophils # (auto) 11.51 K/uL (1.40-6.50); Neutrophils % (auto) 85.3 %; Platelet Count 352 K/uL (130-400); RDW Coefficient of Variation 11.7 % (11.5-14.5); RDW Standard Deviation 35.5 fL (36.4-46.3); Red Blood Count 4.38 M/uL (4.70-6.10)
[2023-01-14] MEDS: DOXYCYCLINE HYCLATE 100 MG in DEXTROSE 5% MINI-B 100 ML IV SCH ×3 (05:36→17:33)
[2023-01-14 05:40] LABS: Anion Gap 8 (3-11); BUN Creatinine Ratio 14.1 (10-20); Blood Urea Nitrogen 10 mg/dl (6-23); Calcium 9.2 mg/dl (8.6-10.3); Carbon Dioxide 23 mmol/L (21-32); Chloride 108 mmol/L (98-107); Creatinine Clr Calc Pharmacy 183.5 ml/min; Est GFR (African American) > 150.0 ml/min; Est GFR (Non-African American) 133.2 ml/min; Glucose 126 mg/dl (70-99(Fasting)); Sodium 139 mmol/L (136-145)
--- NOTE | 2023-01-14 08:01 | Hospitalist Progress Note ---
Date of Service January 14, 2023 Assessment & Plan (1) Mycoplasma pneumonia: Plan: Productive cough x10 days, seen by PCP w/ temp 99.8F, hypoxic in the office to 89-90% on RA and shortness of breath, vomiting x 2 and sent to ER for further evaluation WBC 14.7k on admission w/ tachycardia to 110s, hypoxia- improved on supplemental O2 2L Lactic 0.9, given 2L IVF in ER Chest imaging CTA w/o PE, noting bilateral LL nodularity/multifocal bronchopneumonia in lower lobes Biofire testing + for mycoplasma pneumonia. Strep testing negative Azithromycin in ER, switched to Doxycycline given resistance w/ macrolides Continue Unasyn for atypical PNA WBC improving, afebrile Blood cultures NGTD Continue incentive spirometer, productive yellow sputum reported Continued encouragement of use w/ IS Mucinex BID continued Supplemental O2 to maintain saturations Supportive care, antiemetics prn Tylenol prn Remain on droplet precautions Possible dc tomorrow if continued improvement/able to wean off of oxygen Atorvent nebs q8h to assist w/ shortness of breath (avoiding duonebs to prevent tachycardia).Consider albuterol HFA (2) Sepsis: Plan: Based on tachycardia 116bpm, leukocytosis of 14.75, and pulmonary source Lactic 0.9 and not hypotensive, did not meet need for 30ml/kg IVF resus, was provided 2L NSS in ER Improving on exam, HRs in 80-90s at present (3) Sinus tachycardia: Plan: EKG sinus tachycardia at 112 bpm. CTA chest negative for PE IVF/abx as above Troponin negative Has been NSR in the 90s this morning -- continue to monitor (4) Crohn's disease: Plan: Managed with diet, without daily medications Patient reports gluten-free, low sugar diet rec f/u GI in f/u PCP for routine screening Plan continued inpatient stay, possible dc 01/15 if improvement/off oxygen Admission and Anticipated Discharge Date Admission Date: January 13, 2023 Supervising Physician Co-Signing Physician Notes The patient was not seen by me. The chart was reviewed. Case discussed with DEMOND Sahni. Agree with assessment and plan Subjective Patient evaluated this morning, doing better than admission, still little shortness of breath but improving. +cough, yellow sputum production. using incentive spirometer eating diet without issue, no further fever/chills, no chest pain. discussed monitoring overnight/continued abx but possible discharge tomorrow depending clinical course/O2 requirement. Questions/concerns addressed at this time. Physical Exam 2 Physical Exam: General: 22yo male sitting up in bed, using incentive spirometer, no acute distress, +occasional cough HEENT: head atraumatic, atraumatic, mmm, trachea midline Resp: no tachypnea, +cough, fine crackles bilateral posterior lung bailey, no wheezing/rales, on 2L NC SpO2 93% CV: RRR (rates 80-90s this morning, NSR), no significant m/r/g GI: +BS, soft/NT : no koehler MSK/Neuro: non focal, no slurred speech/facial droop, follows commands Psych: AOx3, cooperative with exam Results & Data Results & Data Vital Signs (Past 12 Hours) Vital Signs Temp Pulse Pulse Pulse Resp BP Pulse Ox 01/14/23 07:53 36.4 C L 96 H 16 124/84 93 01/14/23 07:48 88 01/14/23 03:52 36.5 C 100 H 18 131/78 97 01/13/23 23:54 106 H 01/13/23 23:13 01/13/23 23:13 36.3 C L 101 H 18 148/96 H 94 01/13/23 22:45 01/13/23 20:38 112 H 01/13/23 20:30 108 H 22 121/69 92 O2 Del Method O2 Flow Rate 01/14/23 07:53 Nasal Cannula 2 01/14/23 07:48 01/14/23 03:52 Nasal Cannula 2 01/13/23 23:54 01/13/23 23:13 Nasal Cannula 2 01/13/23 23:13 Nasal Cannula 2 01/13/23 22:45 Nasal Cannula 2 01/13/23 20:38 01/13/23 20:30 Nasal Cannula 2 Laboratory Results 01/14/23 04:50 01/14/23 04:50 Diagnostic Findings Chest X-Ray 01/13/23 11:46 XR chest 1V portable HISTORY: 22 years-old Male Chest pain, nonspecific COMPARISON: 03/27/2015 TECHNIQUE: AP view of the chest FINDINGS: Cardiomediastinal and hilar silhouettes are within normal limits. No pneumothorax, pleural effusion or airspace consolidation. The bones appear grossly intact. Mild nonspecific mid to lower lung interstitial coarsening. IMPRESSION: 1. No airspace consolidation typical for pneumonia. 2. Equivocal interstitial coarsening of the mid to lower lung zones which may be secondary to technique versus a subtle pneumonitis. ACT 112: Negative or not required by law. The above report was generated using voice recognition software. It may contain grammatical, syntax or spelling errors. Electronically signed by: Simeon Nj M.D. 01/13/2023 12:02 PM Chest CTA 01/13/23 12:46 CT angio chest PE protocol CLINICAL HISTORY: tachycardia, hypoxia, sepsis, r/o PE TECHNIQUE: Multidetector row helical CT of the chest was performed with angiographic protocol. Coronal and sagittal reformations were obtained. Coronal and sagittal MIPS were obtained from the axial data set and were submitted for review. Automated dose lowering techniques and/or adjustment according to patient size were utilized for this exam. CT DOSE: 2520.28 mGy.cm Comparison: None available at the time of this dictation. FINDINGS: Lungs and pleura: There is prominent nodularity in the bilateral lower lungs. Heart and pericardium: Heart size is normal. No pericardial effusion. Vessels: No evidence of pulmonary embolism. Mediastinum and castillo: Subcentimeter lymph nodes are seen. Chest wall and lower neck: Subcentimeter axillary lymph nodes noted. Abdomen: For findings below the diaphragm, please refer to CT of the abdomen dated the same. Bones: Unremarkable. IMPRESSION: No pulmonary embolus. Bilateral lower lung nodularity likely represents infectious/inflammatory process. ACT 112: Negative or not required by law. Electronically signed by: Glynn Hamm M.D. 01/13/2023 1:59 PM Abdomen/Pelvis CT 01/13/23 12:[address] WITH IV CONTRAST HISTORY: Acute tachycardia with sepsis, nausea and vomiting sepsis, n/v TECHNIQUE: Multiaxial CT images of the abdomen and pelvis were performed following the IV administration of 117 cc of Optiray, A dose lowering technique was utilized adhering to the principles of ALARA. COMPARISON STUDY: CTA chest of same day FINDINGS: Bronchial wall thickening with diffuse bronchoalveolar groundglass and consolidative opacities, most pronounced in the basal lower lobes. No free air. The spleen is enlarged measuring 15.2 cm. Unremarkable spleen, pancreas and mildly distended gallbladder. The liver is within normal limits. Patency of the hepatic and portal veins. Unremarkable kidneys. No hydronephrosis. Urinary bladder wall thickening with partial distention. Unremarkable prostate. Aorta and IVC are unremarkable. There is no lymphadenopathy. No bowel obstruction or bowel wall thickening. No ascites or mesenteric inflammation. Mural for fatty changes of the colon. Normal appendix. No acute fracture. IMPRESSION: 1. Multifocal bronchopneumonia, most pronounced within the lower lobes. 2. No acute intra-abdominal or intrapelvic abnormality 3. Normal appendix. ACT 112: Negative or not required by law. The above report was generated using voice recognition software. It may contain grammatical, syntax or spelling errors. Electronically signed by: Simeon Nj M.D. 01/13/2023 2:17 PM PG Care Time/CCT Total # of Minutes Spent Total Time Spent with Patient: Total time spent is greater than 50% in coordination of care (as documented) at patient's floor/unit and/or counseling patient: Coding Level of Care Code 28709 SUB INP/OBS CARE 3/50MIN Diagnoses Mycoplasma pneumonia J15.7 Sepsis A41.9 Sinus tachycardia R00.0 Crohn's disease K50.90
[2023-01-14] MEDS: guaiFENesin 600 MG TABCR PO SCH ×2 (09:11→21:03)
[2023-01-14] MEDS: IPRATROPIUM BROMIDE NEB SOLN 0.02% 2.5 ML VIAL NEB SCH ×2 (15:21→22:34)
[2023-01-15] MEDS: AMPICILLIN/SULBACTAM SOD 3,000 MG in SODIUM CHLOR 0.9% MINI-B 100 ML IV SCH (04:11)
[2023-01-15 04:18] LABS: Basophils # (auto) 0.07 K/uL (0.00-0.20); Basophils % (auto) 0.4 %; Eosinophils # (auto) 0.15 K/uL (0.00-0.50); Eosinophils % (auto) 0.9 %; Hematocrit (blood only) 36.5 % (42.0-52.0); Immature Granulocytes # (auto) 0.21 K/uL (0.01-0.20); Immature Granulocytes % (auto) 1.3 %; Lymphocytes # (auto) 3.08 K/uL (1.20-3.40); Lymphocytes % (auto) 19.3 %; Mean Corpuscular Hemoglobin 30.6 pg (25.0-34.0); Mean Corpuscular Hgb Conc 35.6 g/dL (32.0-36.0); Mean Corpuscular Volume 85.9 fL (80.0-100.0); Mean Platelet Volume 9.3 fL (9.4-12.4); Monocytes # (auto) 0.77 K/uL (0.11-0.59); Monocytes % (auto) 4.8 %; Neutrophils # (auto) 11.71 K/uL (1.40-6.50); Neutrophils % (auto) 73.3 %; Platelet Count 348 K/uL (130-400); RDW Standard Deviation 36.3 fL (36.4-46.3); Red Blood Count 4.25 M/uL (4.70-6.10); White Blood Count 15.99 K/ul (4.8-10.8)
[2023-01-15 04:19] LABS: BUN Creatinine Ratio 11.3 (10-20); Calcium 9.1 mg/dl (8.6-10.3); Creatinine Clr Calc Pharmacy 134.3 ml/min; Est GFR (African American) 127.9 ml/min; Est GFR (Non-African American) 110.4 ml/min; Potassium 3.8 mmol/L (3.5-5.1)
[2023-01-15] MEDS: DOXYCYCLINE HYCLATE 100 MG in DEXTROSE 5% MINI-B 100 ML IV SCH (05:46)
[2023-01-15] MEDS: IPRATROPIUM BROMIDE NEB SOLN 0.02% 2.5 ML VIAL NEB SCH (06:13)
--- NOTE | 2023-01-15 07:54 | Hospitalist Progress Note ---
Date of Service January 15, 2023 Assessment & Plan (1) Mycoplasma pneumonia: Plan: Productive cough x10 days, seen by PCP w/ temp 99.8F, hypoxic in the office to 89-90% on RA and shortness of breath, vomiting x 2 and sent to ER for further evaluation WBC 14.7k on admission w/ tachycardia to 110s, hypoxia- improved on supplemental O2 2L Lactic 0.9, given 2L IVF in ER Chest imaging CTA w/o PE, noting bilateral LL nodularity/multifocal bronchopneumonia in lower lobes Biofire testing + for mycoplasma pneumonia. Strep testing negative Azithromycin in ER, switched to Doxycycline given resistance w/ macrolides Continue Unasyn for atypical PNA WBC improving, afebrile Blood cultures NGTD Continue incentive spirometer, productive yellow sputum reported Continued encouragement of use w/ IS Mucinex BID continued Supplemental O2 to maintain saturations Supportive care, antiemetics prn Tylenol prn Remain on droplet precautions Possible dc tomorrow if continued improvement/able to wean off of oxygen Atorvent nebs q8h to assist w/ shortness of breath (avoiding duonebs to prevent tachycardia). Consider albuterol HFA 01/15 --> 95% on room air. Possible dc today (2) Sepsis: Plan: Based on tachycardia 116bpm, leukocytosis of 14.75, and pulmonary source Lactic 0.9 and not hypotensive, did not meet need for 30ml/kg IVF resus, was provided 2L NSS in ER Improving on exam, HRs in 80-90s at present (3) Sinus tachycardia: Plan: EKG sinus tachycardia at 112 bpm. CTA chest negative for PE IVF/abx as above Troponin negative Has been NSR in the 90s this morning -- continue to monitor (4) Crohn's disease: Plan: Managed with diet, without daily medications Patient reports gluten-free, low sugar diet rec f/u GI in f/u PCP for routine screening Plan continued inpatient stay, possible dc 01/15 if improvement/off oxygen Admission and Anticipated Discharge Date Admission Date: January 13, 2023 Results & Data Results & Data Vital Signs (Past 12 Hours) Vital Signs Temp Pulse Pulse Resp BP Pulse Ox O2 Del Method 01/15/23 07:29 76 01/15/23 05:20 36.4 C L 94 H 20 128/80 95 Room Air 01/15/23 02:02 95 H 01/14/23 23:05 36.4 C L 93 H 18 127/79 91 Room Air Laboratory Results 01/15/23 Range/Units 03:33 WBC 15.99 H (4.8-10.8) K/ul RBC 4.25 L (4.70-6.10) M/uL Hgb 13.0 L (14.0-18.0) g/dl Hct 36.5 L (42.0-52.0) % MCV 85.9 (80.0-100.0) fL MCH 30.6 (25.0-34.0) pg MCHC 35.6 (32.0-36.0) g/dL RDW Std Deviation 36.3 L (36.4-46.3) fL RDW Coeff of Chris 12.0 (11.5-14.5) % Plt Count 348 (130-400) K/uL MPV 9.3 L (9.4-12.4) fL Immature Gran % (Auto) 1.3 % Neut % (Auto) 73.3 % Lymph % (Auto) 19.3 % Butler % (Auto) 4.8 % Eos % (Auto) 0.9 % Baso % (Auto) 0.4 % Neut # (Auto) 11.71 H (1.40-6.50) K/uL Lymph # (Auto) 3.08 (1.20-3.40) K/uL Butler # (Auto) 0.77 H (0.11-0.59) K/uL Eos # (Auto) 0.15 (0.00-0.50) K/uL Baso # (Auto) 0.07 (0.00-0.20) K/uL Immature Gran # (Auto) 0.21 H (0.01-0.20) K/uL Sodium 141 (136-145) mmol/L Potassium 3.8 (3.5-5.1) mmol/L Chloride 108 H (98-107) mmol/L Carbon Dioxide 26 (21-32) mmol/L Anion Gap 7 (3-11) BUN 11 (6-23) mg/dl Creatinine 0.97 (0.6-1.4) mg/dl Est Cr Clr Drug Dosing 134.3 ml/min Est GFR ( Amer) 127.9 ml/min Est GFR (Non-Af Amer) 110.4 ml/min BUN/Creatinine Ratio 11.3 (10-20) Glucose 93 (70-99(Fasting)) mg/dl Calcium 9.1 (8.6-10.3) mg/dl PG Care Time/CCT Total # of Minutes Spent Total Time Spent with Patient: Total time spent is greater than 50% in coordination of care (as documented) at patient's floor/unit and/or counseling patient: Coding Diagnoses Mycoplasma pneumonia J15.7 Sepsis A41.9 Sinus tachycardia R00.0 Crohn's disease K50.90
[2023-01-15] MEDS: guaiFENesin 600 MG TABCR PO SCH (07:59)
--- NOTE | 2023-01-15 11:06 | Discharge Summary ---
Date of Service January 15, 2023 Admission HPI Per Admitting Provider Ivy is a 22-year-old male with PMH of Crohn's disease. He presented for productive cough x10 days, as well as an acute exacerbation of hypoxia at 89% and tachycardia at 115bpm in his PCP appointment this morning on 01/13. Patient reports intermittent fevers up to 99.8 F over the past week. He endorses SOB with light exertion; not currently at rest. The SOB is improved by leaning forward. He denies pleuritic CP, but coughs when he takes deep breaths. 2 episodes of vomiting, last night on 01/12 and again this morning on 01/13. No hematemesis. No hemoptysis. Patient took 2 Tylenol tabs 500 mg, Mucinex, cough syrup with codeine, and DayQuil yesterday, which helped. He denies tobacco use, smoking, vaping, and recreational drug use. Occasional alcohol use, but none within the last week. He lives with his mom and sister. No one else in the house is sick. The patient cannot identify any sick contacts within the past 2- week. No environmental exposures. No recent travel outside [place]. No recent bus rides or airplane travel. He has not noticed any ticks on his body. Patient is currently unemployed. He tested positive for mycoplasma pneumonia on arrival. Patient is mildly tachycardic at 116 bpm on arrival; vitals otherwise hemodynamically stable. ED course: Azithromycin 500 mg Unasyn 3000 mg IV NSS 2000 mL Solu-Medrol 125 mg IV DuoNeb 12 mL Toradol 50 mg IV Acetaminophen 1000 mg IV Pepcid 20 mg IV Mucinex 1200 mg p.o. Zofran 4 mg IV ROS: Patient endorses fever, chills, nightsweats, SOB, productive cough (yellow sputum), N/V. Patient denies hemoptsis, CP, pleuritic CP, hematemesis, burning with urination, diarrhea, numbness/tingling/pain/swelling in legs. No PMHx of asthma, AR, DVT/PE, blood clots, or bleeding disorders Admission Exam Per Admitting Provider General: Mild respiratory distress; diaphoretic; non-toxic appearing; well- nourished; cooperative; 92% SPO2 on 3L NC HEENT: normocephalic, atraumatic; no scleral icterus; PERRLA w/ EOMs intact; moist mucus membrane; vision and hearing grossly intact Neck: supple; no JVD; no lymphadenopathy; trachea midline Skin: warm, dry without signs of tenting; no cyanosis; no rashes, bruising, lesions, or erythema noted CV: chest wall NTP; tachycardic at 120 bpm, regular rhythm; S1/S2 normal; no murmurs/rubs/gallops; pulses bounding, intact and symmetric at radial, DP, and PT Lungs: Mild respiratory distress; symmetrical chest wall expansion; clear breath sounds across all lung bailey w/o adventitious sounds; no wheezing ABD: Soft, NTP; BS present; no rebound/guarding; no ascites; no distention MSK: no tics or fasciculations; no edema noted in the LEs b/l, nonerythematous Neuro: A&Ox3; normal mood and affect; fluent speech; no focal deficits; sensation grossly intact in the LEs B/L Principal Diagnosis Mycoplasma Pneumonia, Acute Respiratory Failure w/ Hypoxia Discharge Exam General: 22yo male sitting up in bed, using incentive spirometer, no acute distress, cough much improved HEENT: head atraumatic, atraumatic, mmm, trachea midline Resp: no tachypnea, +cough, fine crackles bilateral posterior lung bailey, no wheezing/rales, on ROOM AIR 97% this morning CV: RRR (rates 80-90s this morning, NSR), no significant m/r/g or calf jericho a/tenderness GI: +BS, soft/NT : no koehler MSK/Neuro: non focal, no slurred speech/facial droop, follows commands Psych: AOx3, cooperative with exam Skin: pustular rash to back, ?from mycoplasma vs acne Discharge Data Allergies Allergy/AdvReac Type Severity Reaction Status Date / Time Sulfa (Sulfonamide Allergy Unknown . Verified 01/13/23 14:55 Antibiotics) gluten AdvReac Severe Crohn's Unverified 01/13/23 21:27 disease Sugars, Metabolically Active AdvReac "PROCESSED Verified 01/13/23 21:27 SUGARS" Chrohn's Consultations 01/13/23 15:47 ED Decision to Admit Stat Ordered Studies Chest X-Ray 01/13/23 11:46 XR chest 1V portable HISTORY: 22 years-old Male Chest pain, nonspecific COMPARISON: 03/27/2015 TECHNIQUE: AP view of the chest FINDINGS: Cardiomediastinal and hilar silhouettes are within normal limits. No pneumothorax, pleural effusion or airspace consolidation. The bones appear grossly intact. Mild nonspecific mid to lower lung interstitial coarsening. IMPRESSION: 1. No airspace consolidation typical for pneumonia. 2. Equivocal interstitial coarsening of the mid to lower lung zones which may be secondary to technique versus a subtle pneumonitis. ACT 112: Negative or not required by law. The above report was generated using voice recognition software. It may contain grammatical, syntax or spelling errors. Electronically signed by: Simeon Nj M.D. 01/13/2023 12:02 PM Chest CTA 01/13/23 12:46 CT angio chest PE protocol CLINICAL HISTORY: tachycardia, hypoxia, sepsis, r/o PE TECHNIQUE: Multidetector row helical CT of the chest was performed with angiographic protocol. Coronal and sagittal reformations were obtained. Coronal and sagittal MIPS were obtained from the axial data set and were submitted for review. Automated dose lowering techniques and/or adjustment according to patient size were utilized for this exam. CT DOSE: 2520.28 mGy.cm Comparison: None available at the time of this dictation. FINDINGS: Lungs and pleura: There is prominent nodularity in the bilateral lower lungs. Heart and pericardium: Heart size is normal. No pericardial effusion. Vessels: No evidence of pulmonary embolism. Mediastinum and castillo: Subcentimeter lymph nodes are seen. Chest wall and lower neck: Subcentimeter axillary lymph nodes noted. Abdomen: For findings below the diaphragm, please refer to CT of the abdomen dated the same. Bones: Unremarkable. IMPRESSION: No pulmonary embolus. Bilateral lower lung nodularity likely represents infectious/inflammatory process. ACT 112: Negative or not required by law. Electronically signed by: Glynn Hamm M.D. 01/13/2023 1:59 PM Abdomen/Pelvis CT 01/13/23 12:[address] WITH IV CONTRAST HISTORY: Acute tachycardia with sepsis, nausea and vomiting sepsis, n/v TECHNIQUE: Multiaxial CT images of the abdomen and pelvis were performed following the IV administration of 117 cc of Optiray, A dose lowering technique was utilized adhering to the principles of ALARA. COMPARISON STUDY: CTA chest of same day FINDINGS: Bronchial wall thickening with diffuse bronchoalveolar groundglass and consolidative opacities, most pronounced in the basal lower lobes. No free air. The spleen is enlarged measuring 15.2 cm. Unremarkable spleen, pancreas and mildly distended gallbladder. The liver is within normal limits. Patency of the hepatic and portal veins. Unremarkable kidneys. No hydronephrosis. Urinary bladder wall thickening with partial distention. Unremarkable prostate. Aorta and IVC are unremarkable. There is no lymphadenopathy. No bowel obstruction or bowel wall thickening. No ascites or mesenteric inflammation. Mural for fatty changes of the colon. Normal appendix. No acute fracture. IMPRESSION: 1. Multifocal bronchopneumonia, most pronounced within the lower lobes. 2. No acute intra-abdominal or intrapelvic abnormality 3. Normal appendix. ACT 112: Negative or not required by law. The above report was generated using voice recognition software. It may contain grammatical, syntax or spelling errors. Electronically signed by: Simeon Nj M.D. 01/13/2023 2:17 PM Hospital Course (1) Mycoplasma pneumonia: Productive cough x10 days, seen by PCP w/ temp 99.8F, hypoxic in the office to 89-90% on RA and shortness of breath, vomiting x 2 and sent to ER for further evaluation WBC 14.7k on admission w/ tachycardia to 110s, hypoxia- improved on supplemental O2 2L Lactic 0.9 s/p 2L IVF on admission CT chest WITHOUT evidence for PE, CTAP noting multifocal bronchopneumonia in lower lobes [employer] testing + for mycoplasma pneumonia. Strep testing negative Droplet precautions maintained Azithromycin in ER, switched to Doxycycline given resistance w/ macrolides, unasyn was continued for atypical pna Mucinex BID Incentive spirometer WBC improved but then 15.99K but remained afebrile and titrated off oxygen and feeling well/wanting to go home 2step completed prior to discharge WITHOUT need for supplemental oxygen w/ ambu lation Discussed to monitor for any worsening breathing/shortness of breath or fevers but discharged home to continue incentive spirometer and Doxycycline PO BID to complete course of treatment. Given labs to repeat on Wednesday to ensure WBC improved/resolved. To return to ER if any worsening of symptoms (2) Sepsis: Based on tachycardia 116bpm, leukocytosis of 14.75, and pulmonary source as above. Lactic 0.9 and did not meet for need for 30ml/kg IVF resus, was provided 2L NSS in ER HRs improved w/ treatment and remaining 80-100s over past 24 hours (3) Sinus tachycardia: EKG sinus tachycardia at 112 bpm. CTA chest negative for PE IVF/abx as above Troponin negative HRs improved w/ treatment (4) Crohn's disease: Managed with diet, without daily medications Patient reports gluten-free, low sugar diet rec f/u GI in f/u PCP for routine screening Plan discharged home on doxycycline to complete course. 2step without needs for O2 w/ ambulation. Repeating labs Wednesday, f/u with PCP in next 7-10 days. Total Time Total Time Spent Total Time Spent (In Minutes): 45 Discharge Plan Discharge Items Patient Disposition: Home - Self-Care Reason For Visit: FLU-LIKE SYMPTOMS, FEVER, SOB Discharge Diagnosis: Mycoplasma Pneumonia Goals: You have been hospitalized for an acute medical problem. During your stay at [facility] [address], we have made an effort to correct the problem that brought you to the hospital while keeping you as comfortable as possible. Medications were used to bring your condition under control and your discharge instructions will include directions for any medications you should take after leaving the hospital. Please make sure you see your Primary Care Provider as part of your follow up plan. Activity: Resume your previous activity Non-emergency contact: Primary Care Provider Call non-emergency contact if: you have any medication questions, your symptoms worsen and you have a fever Follow-up/Referrals: Rodrick Lozoya, [Primary Care Provider] - 01/25/23 12:00 pm Diet: Regular Ambulatory Orders: Complete Blood Count with Diff (Routine) Timeframe: [id number] Location: Determined by Patient Ordered By: Velvet Schwartz Attending Provider Instructions: You have been hospitalized for cough x 10 days and found to have a multifocal pneumonia. Imaging was NEGATIVE for a pulmonary emboli (blood clot) to your lungs. Testing was positive for mycoplasma pneumonia, and treatment with IV antibiotics and breathing treatments were provided. You are to continue Doxycycline 100mg by mouth TWICE daily for 7 days to complete the course. You have another 5 days to complete the course. You should take this with a glass of water to prevent any irritation to your throat. You can continue Mucinex twice daily to help thin mucus/sputum and please ensure staying hydrated. Please continue to use the incentive spirometer to help improve your lung function and prevent any worsening. Please return to the ER with any worsening shortness of breath, chest pain, fevers/chills, or for any other symptoms concerning for you. Repeat labs have been provided to check on Wednesday. Please follow up with primary care provider in the next 7-10 days to monitor your progress after discharge. It has been a pleasure being a part of the medical team providing for you while you have been in the hospital. Take care! Pending Studies at Discharge: Yes Studies:: blood cultures -- no growth to date Stand-Alone Forms: My [facility] Medications and DC Order Prescriptions: New guaifenesin [Mucinex] 600 mg Tablet Extended Release 12hr 1,200 mg PO Q12 Qty: 14 0RF doxycycline hyclate 100 mg capsule 100 mg PO BID 5 Days Qty: 10 0RF Discontinued amoxicillin-pot clavulanate 875-125 mg tablet 1 tab PO BID Qty: 20 0RF prednisone 50 mg tablet 50 mg PO DAILY Qty: 5 0RF Discharge Orders: Discharge Order (Routine); Ordered 01/15/23 Ordered By: Velvet Rojas Admission Data Admit Date/Time: 01/13/23 16:47 Attending Provider: Boris Mcneill Admit Provider: Mahendra Boles Primary Care Provider: Rodrick Lozoya Other Providers: Mahendra Boles Other Interventions: Discharge Summary Assessment (RN) Last Done: 01/15/23 11:21 Supervising Physician Co-Signing Physician Notes The patient was not seen by me. The chart was reviewed. Case discussed with DEMOND Sahni. Agree with assessment and plan. Home today, January 15 Coding Level of Care Code 68760 INP/OBS DISCH >30 MIN Diagnoses Mycoplasma pneumonia J15.7 Sepsis A41.9 Sinus tachycardia R00.0 Crohn's disease K50.90
== END 2023-01-15 11:54 | disposition home or self-care (01) | DRG 871 ==
LOC: ED 11:33 → EDINP 16:47 → SUATTDRO 16:47 → 2W 22:45